=== PATIENT | male | born 2000 | race American Indian/Alaskan Native ===

== ENCOUNTER 2021-03-29 19:41 | Emergency (ER) | payer OTHER ==
[~2021-03-29] VITALS: Ht 167.6 cm; Wt 68.7 kg
--- NOTE | 2021-03-29 23:55 | REPVR ---
PROCEDURE INFORMATION: Exam: XR Left Hand Exam date and time: 03/29/2021 10:39 PM Age: 20 years old Clinical indication: Other: Trauma TECHNIQUE: Imaging protocol: XR Left hand. Views: 3 or more views. COMPARISON: No relevant prior studies available. FINDINGS: Bones/joints: No acute fracture or dislocation. Soft tissues: Soft tissue swelling over the knuckles. IMPRESSION: 1. No acute osseous abnormality. 2. Soft tissue swelling over the knuckles. Electronically signed by: Saurav Ramos On 03/29/2021 23:55:10 PM
[2021-03-30 00:53] VITALS: BP 115/65
== END 2021-03-30 00:55 | disposition home or self-care (01) ==
LOC: M ED 19:41
DX: S60.222A Contusion of left hand, initial encounter (principal); W04.XXXA Fall while being carried or supported by other persons, initial encounter; W22.8XXA Striking against or struck by other objects, initial encounter; Y99.1 Military activity; Y92.9 Unspecified place or not applicable; Y93.9 Activity, unspecified

== ENCOUNTER 2025-01-07 22:13 | Inpatient (IN) | payer OTHER ==
[~2025-01-07] VITALS: Ht 165.1 cm; Wt 64.5 kg
[2025-01-07] MEDS: diphenhydrAMINE 50 MG/ML VIAL IM ONE (22:33)
[2025-01-07] MEDS: HALOPERIDOL LACTATE 5 MG/ML VIAL IM ONE (22:33)
[2025-01-07 23:03] LABS: PLATELET COUNT, AUTOMATED 281 10^3/uL (150-450)
[2025-01-07 23:26] LABS: ETHYL ALCOHOL (ETHANOL) 0.272 % (0.000-0.010)
[2025-01-07 23:28] LABS: ALT/SGPT 47 U/L (7.0-40); AST/SGOT 50 U/L (<34); CALCIUM LEVEL 8.2 MG/DL (8.5-10.1); CARBON DIOXIDE LEVEL 22 MMOL/L (20-31); CHLORIDE LEVEL 109 MMOL/L (98-107); CREATININE FOR GFR 0.74 MG/DL (0.70-1.30); GLOMERULAR FILTRATION RATE > 90.0 (>60); POTASSIUM SERUM 3.8 MMOL/L (3.5-5.1); SALICYLATE LEVEL < 3.0 MG/DL (<30); SODIUM LEVEL 147 MMOL/L (136-145)
[2025-01-07 23:32] LABS: CPK CREATINE PHOSPHOKINASE 79 U/L (46-171)
[2025-01-07 23:40] LABS: AMPHETAMINES LEVEL URINE NEGATIVE (NEGATIVE); BARBITURATES URINE NEGATIVE (NEGATIVE); BENZODIAZEPINES URINE NEGATIVE (NEGATIVE); CANNABINOIDS URINE NEGATIVE (NEGATIVE); COCAINE METABOLITE URINE NEGATIVE (NEGATIVE); METHADONE URINE NEGATIVE (NEGATIVE); OPIATES URINE NEGATIVE (NEGATIVE); PHENCYCLIDINE URINE NEGATIVE (NEGATIVE)
[2025-01-08] MEDS: NS (Normal Saline) 0.9% 1,000 ML IV ONE (00:28)
[2025-01-08] MEDS: NS (Normal Saline) 0.9% 1,000 ML IV SCH (04:11)
[2025-01-08] MEDS ORDERED: HOME MED LIST COMPLETE! XX SCH (08:50)
[2025-01-08] MEDS ORDERED: MAALOX 30 ML SUSP *UDC PO PRN (11:55)
[2025-01-08] MEDS ORDERED: ACETAMINOPHEN 325 MG TAB PO PRN (11:55)
[2025-01-08] MEDS ORDERED: MOM 30 ML SUSPENSION UDC PO PRN (11:55)
[2025-01-08] MEDS ORDERED: IBUPROFEN 400 MG TAB PO PRN (11:55)
[2025-01-08 15:01] VITALS: BP 130/66; TEMP 98.9; O2SAT 98
[2025-01-09 06:32] VITALS: BP 120/57; TEMP 97.3; O2SAT 97
[2025-01-09] MEDS ORDERED: CALCIUM CARBONATE 500 MG CHEW U/D PO PRN (10:50)
[2025-01-09 14:56] LABS: IONIZED CALCIUM 4.7 MG/DL (4.5-5.3)
[2025-01-09 15:28] LABS: PHOSPHORUS LEVEL 2.7 MG/DL (2.5-4.9); PTH INTACT 61.0 PG/ML (18.5-88.0)
[2025-01-09 15:29] LABS: THYROXINE (T4) 8.6 UG/DL (4.5-10.9)
[2025-01-09 15:31] LABS: FREE T4 1.17 NG/DL (0.89-1.76); TOTAL 25(OH) VITAMIN D 6.7 NG/ML (20.0-100.0)
[2025-01-09 15:43] VITALS: BP 141/75; TEMP 98.1; O2SAT 98
[2025-01-10 08:23] VITALS: BP 141/75; TEMP 98.1; O2SAT 98
[2025-01-10] MEDS: VITAMIN D 50,000 UNITS CAPSULE (ERGOCALCIFEROL 1.25MG) PO SCH (09:25)
[2025-01-10 13:01] LABS: CALCIUM LEVEL 9.3 MG/DL (8.5-10.1); CARBON DIOXIDE LEVEL 28 MMOL/L (20-31); CHLORIDE LEVEL 103 MMOL/L (98-107); CREATININE FOR GFR 0.75 MG/DL (0.70-1.30); GLOMERULAR FILTRATION RATE > 90.0 (>60); POTASSIUM SERUM 4.8 MMOL/L (3.5-5.1); SODIUM LEVEL 140 MMOL/L (136-145)
[2025-01-10 15:23] VITALS: BP 119/63; TEMP 98.1; O2SAT 97
[2025-01-10] MEDS: traZODone 50 MG TAB PO PRN (22:05)
[2025-01-11 07:10] VITALS: BP 116/78; TEMP 97.5; O2SAT 100
[2025-01-11 15:59] VITALS: BP 133/63; TEMP 98; O2SAT 100
[2025-01-12] MEDS ORDERED: ERGO500029 PO (06:23)
[2025-01-12] MEDS ORDERED: TRAZ-252 PO (06:23)
[2025-01-12] MEDS ORDERED: HYDR-3363 PO (06:23)
[2025-01-12 06:31] VITALS: BP 136/64; TEMP 97; O2SAT 98
== END 2025-01-12 13:18 | disposition home or self-care (01) | DRG 881 ==
LOC: M ED 22:13 → M ED INP 01-08 11:53 → M PSY 01-08 13:17
PROVIDERS: ADMIT General Practice; ATTEND General Practice
DX: F43.21 Adjustment disorder with depressed mood (principal); R45.851 Suicidal ideations; E87.1 Hypo-osmolality and hyponatremia; F41.9 Anxiety disorder, unspecified; F10.10 Alcohol abuse, uncomplicated; F32.9 Major depressive disorder, single episode, unspecified; E55.9 Vitamin D deficiency, unspecified

== ENCOUNTER 2025-05-16 22:17 | Emergency (ER) | payer OTHER ==
[~2025-05-16] VITALS: Ht 172.7 cm; Wt 74.6 kg
[~2025-05-16 22:17] MED LIST: ERGO500029 PO; HYDR-3363 PO; TRAZ-252 PO
[2025-05-16] MEDS: MIDAZOLAM INJ 2 MG/2 ML VIAL IV STA ×3 (22:36→22:53)
[2025-05-16 22:44] LABS: BASO # 0.1 10^3/uL (0.0-0.2); BASO % 0.7 % (0.0-1.0); EOS # 0.1 10^3/uL (0.0-0.5); EOS % 1.0 % (0.0-3.0); LYMPH # 2.9 10^3/uL (1.5-5.0); LYMPH % 34.3 % (24.0-44.0); MONO # 0.4 10^3/uL (0.0-0.8); MONO % 4.6 % (2.0-8.0); NEUTROPHILS # 5.0 10^3/uL (1.5-8.5); NEUTROPHILS % 59.2 % (36.0-66.0); PLATELET COUNT, AUTOMATED 343 10^3/uL (150-450)
[2025-05-16 23:15] LABS: ALT/SGPT 29 U/L (7.0-40); AST/SGOT 25 U/L (<34); CALCIUM LEVEL 9.2 MG/DL (8.5-10.1); CARBON DIOXIDE LEVEL 29 MMOL/L (20-31); CHLORIDE LEVEL 106 MMOL/L (98-107); CREATININE FOR GFR 0.81 MG/DL (0.70-1.30); GLOMERULAR FILTRATION RATE > 90.0 (>60); POTASSIUM SERUM 4.9 MMOL/L (3.5-5.1); SALICYLATE LEVEL < 3.0 MG/DL (<30); SODIUM LEVEL 145 MMOL/L (136-145)
[2025-05-16 23:27] LABS: CPK CREATINE PHOSPHOKINASE 178 U/L (46-171)
[2025-05-16 23:31] LABS: ETHYL ALCOHOL (ETHANOL) 0.319 % (0.000-0.010)
[2025-05-17 02:05] VITALS: TEMP 96.9
[2025-05-17 02:47] VITALS: O2SAT 98
[2025-05-17 02:51] LABS: AMPHETAMINES LEVEL URINE NEGATIVE (NEGATIVE); BARBITURATES URINE NEGATIVE (NEGATIVE); CANNABINOIDS URINE NEGATIVE (NEGATIVE); COCAINE METABOLITE URINE NEGATIVE (NEGATIVE); METHADONE URINE NEGATIVE (NEGATIVE); OPIATES URINE NEGATIVE (NEGATIVE); PHENCYCLIDINE URINE NEGATIVE (NEGATIVE)
[2025-05-17 03:01] LABS: BENZODIAZEPINES URINE POSITIVE (NEGATIVE)
[2025-05-17 03:46] VITALS: BP 123/66
== END 2025-05-17 04:20 | disposition home or self-care (01) ==
LOC: EDBD 22:17 → M ED 22:17
DX: F10.129 Alcohol abuse with intoxication, unspecified (principal); F32.A Depression, unspecified; Z79.899 Other long term (current) drug therapy
CPT/HCPCS: 70450; 71045; 72125; 80048; 80076; 80143; 80307; 82077; 82550; 84443; 85025; 93005; 93041; 94760; 96374; 99285; J2250